=== PATIENT | female | born 1985 | race Caucasian/White ===

== ENCOUNTER 2024-06-21 12:51 | Emergency (ER) | payer OTHER ==
[~2024-06-21] VITALS: Ht 160 cm; Wt 70.0 kg
[2024-06-21 12:53] VITALS: O2SAT 99
[2024-06-21 16:39] LABS: CLARITY URINE TURBID (CLEAR); COLOR URINE YELLOW (YELLOW); GLUCOSE URINE NEGATIVE (NEGATIVE); KETONES URINE 4+ (NEGATIVE); LEUKOCYTE ESTERASE URINE TRACE (NEGATIVE); NITRITE URINE NEGATIVE (NEGATIVE); OCCULT BLOOD URINE NEGATIVE (NEGATIVE); PROTEIN URINE 2+ (NEGATIVE); SPECIFIC GRAVITY URINE 1.026 (1.005-1.030)
[2024-06-21] MEDS: SODIUM CHLORIDE 0.9% 1,000 ML IV ONE (16:40)
[2024-06-21 16:47] LABS: *AMPHETAMINES SCREEN URINE NEGATIVE (NEGATIVE); *BARBITURATES SCREEN URINE NEGATIVE (NEGATIVE); *BENZODIAZEPINES SCREEN URINE NEGATIVE (NEGATIVE); *COCAINE SCREEN URINE NEGATIVE (NEGATIVE); CANNABINOID URINE SCREEN PRESUMPTIVE POSITIVE (NEGATIVE); ECSTASY MDMA SCREEN URINE NEGATIVE (NEGATIVE); METHADONE URINE SCREEN NEGATIVE (NEGATIVE); OPIATES URINE SCREEN NEGATIVE (NEGATIVE); PHENCYCLIDINE URINE SCREEN NEGATIVE (NEGATIVE)
[2024-06-21 16:47] LABS: HEMATOCRIT. 38.5 % (36.0-48.0); HEMOGLOBIN. 13.1 g/dL (12.0-16.0); MEAN CORPUSCULAR HEMOGLOBIN 31.8 pg (28.0-32.0); MEAN CORPUSCULAR VOLUME 93.4 fL (81.0-99.0); MEAN PLATELET VOLUME 8.7 fl (7.4-10.4); PLATELET 394 x1000/uL (130-400); RED BLOOD CELL COUNT 4.13 mill/uL (4.2-5.4); RED CELL DISTRIBUTION WIDTH 13.1 % (11.6-14.6); WHITE BLOOD COUNT 17.9 x1000/uL (4.5-11.0)
[2024-06-21 16:48] LABS: DIFFERENTIAL COMMENT 1
[2024-06-21 16:53] LABS: CHLORIDE 102 mEq/L (98-107); POTASSIUM 3.4 mEq/L (3.5-5.1); SODIUM 142 mEq/L (136-145)
[2024-06-21 16:54] LABS: CARBON DIOXIDE 24 mEq/L (21-32)
[2024-06-21 16:59] LABS: CREATININE 0.6 mg/dL (0.6-1.0)
[2024-06-21 17:00] LABS: GLUCOSE 120 mg/dL (70-105); UREA NITROGEN BLOOD 12 mg/dL (9-23)
[2024-06-21 17:01] LABS: ALANINE AMINOTRANSFERASE 14 IU/L (10-49); ASPARTATE AMINOTRANSFERASE 19 IU/L (<34)
[2024-06-21 17:02] LABS: ALBUMIN 5.2 g/dL (3.2-4.8); BILIRUBIN DIRECT 0.2 mg/dL (<=3.0); BILIRUBIN TOTAL 0.8 mg/dL (0.1-1.0); PROTEIN TOTAL 8.6 g/dL (6.0-8.3)
[2024-06-21 17:04] LABS: BACTERIA URINE 4+; RBC URINE 0-2 /hpf (0-2); SQUAMOUS EPITHELIAL CELL URINE 2+ /lpf (RARE/1+); WBC URINE 0-2 /hpf (0-2)
[2024-06-21 17:05] LABS: HCG SCREEN NEGATIVE
[2024-06-21 17:05] LABS: AMORPHOUS SEDIMENT URINE 1+ /lpf
[2024-06-21] MEDS: POTASSIUM CHLORIDE 20MEQ TABLET SR PO NR (17:17)
[2024-06-21] MEDS: DIPHENHYDRAMINE 50MG/ML VIAL IV ONE (17:17)
[2024-06-21] MEDS: METOCLOPRAMIDE HCL 10MG/2ML VIAL IV ONE (17:17)
[2024-06-21] MEDS: ONDANSETRON 4MG ODT PO STA (17:17)
[2024-06-21] MEDS: PANTOPRAZOLE SODIUM 40 MG/VIAL IV ONE (17:17)
[2024-06-21 18:33] LABS: PLATELET ESTIMATE NORMAL
[2024-06-21] MEDS: KETOROLAC 15MG/ML VIAL IV NR (18:37)
[2024-06-21] MEDS: MORPHINE SULFATE 4 MG/ML INJ (FOR IV/IM USE) IV NR (18:37)
[2024-06-21] MEDS ORDERED: ONDA-239 PO (19:19)
[2024-06-21 19:30] VITALS: BP 118/73; PULSE 84; RESP 18; TEMP 36.3; O2SAT 98
== END 2024-06-21 19:34 | disposition home or self-care (01) ==
LOC: ER 12:51
DX: F12.90 Cannabis use, unspecified, uncomplicated (principal); R11.15 Cyclical vomiting syndrome unrelated to migraine; Z79.899 Other long term (current) drug therapy
CPT/HCPCS: 80076; 80305; 80048; 81003; 84703; 83690; 84443; 85025; 36415; 74176; 96365; 96375; 99285; Q0162; J1200; J1885; J2765; J2470; J7030; Z7610 ×2